=== PATIENT | male | born 1990 | race Two or more races ===

== ENCOUNTER 2021-04-03 | Outpatient (CLI) | payer OTHER | END 2021-04-03 23:59 | disposition home or self-care (01) | DX: Z53.9 Procedure and treatment not carried out, unspecified reason (principal) ==

== ENCOUNTER 2024-05-29 08:00 | Outpatient (CLI) | payer OTHER ==
--- NOTE | 2024-05-29 17:34 | XRAY Report ---
PROCEDURE: Finger(s) RT INDICATIONS: SPRAIN OF RIGHT THUMB TECHNIQUE: AP hand, 2 views of the first finger(s) acquired. COMPARISON: None. FINDINGS: Bones: No fractures or dislocations. No suspicious bony lesions. Soft tissues: No suspicious soft tissue calcifications or masses. IMPRESSION: No right thumb fracture or dislocation. No gross soft tissue abnormalities. Reviewed by: Gagandeep Rodriguez MD on 05/29/2024 5:33 PM PDT Approved by: Gagandeep Rodriguez MD on 05/29/2024 5:33 PM PDT Station ID: [id number]
== END 2024-05-29 23:59 | disposition home or self-care (01) ==
LOC: DI.S 08:00
PROVIDERS: ATTEND Registered Nurse
DX: S63.681A Other sprain of right thumb, initial encounter (principal)